=== PATIENT | male | born 1965 | race Caucasian/White ===

== ENCOUNTER → 2016-07-13 | Outpatient (CLI) | payer MEDICARE, MEDICAID ==
[~2016-07-13] MED LIST: CALC600T34 PO; FLON0.053; FOSA70TA OR; LEVE500 PO; PHEN60TA PO
--- NOTE | 2016-07-13 14:36 | RADRPT ---
EXAM DATE/TIME: 07/13/2016 13:56 [facility] COMPARISON: CT BRAIN W/O CONTRAST, May 04, 2012, 21:48. INDICATIONS : Hydrocephalus, evaluate shunt. Status post craniotomy. RADIATION DOSE: 56.35 CTDIvol (mGy) MEDICAL HISTORY : Hydrocephalus SURGICAL HISTORY : Shunt ENCOUNTER: Initial ACUITY: 1 day PAIN SCALE: 0/10 LOCATION: cranial TECHNIQUE: Multiple contiguous axial images were obtained of the head. Using automated exposure control and adj ustment of the mA and/or kV according to patient size, radiation dose was kept as low as reasonably a chievable to obtain optimal diagnostic quality images. FINDINGS: There are interval postsurgical changes status post right frontal craniotomy. There are 2 shunt cesia ters again visualized which are unchanged in appearance. One catheter has the tip in a large extra ax ial fluid collection along the left temporal and parietal lobe. Second catheter tip projected in the left occipital horn of the lateral ventricle. The ventricular system is stable in appearance with no acute hydrocephalus. There is an area of encephalomalacia now noted in the right frontal lobe at site of interval craniotomy. There is no acute hemorrhage or mass effect. The posterior fossa and brainst em are stable. CONCLUSION: 1. No acute hemorrhage or mass effect. 2. [address] cathe[address] remain in place and are unchanged in appearance. There is no acute hydrocephalus . 3. Interval postsurgical changes status post right frontal craniotomy with new area of encephalomalac ia at site of prior mass. Jasiel Sales MD on July 13, 2016 at 14:31 Board Certified Radiologist. This report was verified electronically.
== END ==
LOC: HRAD 13:21
PROVIDERS: ATTEND Psychiatry & Neurology Neurology
DX: G91.9 Hydrocephalus, unspecified (principal)
CPT/HCPCS: 70450

== ENCOUNTER → 2017-01-13 | Outpatient (CLI) | payer MEDICARE, MEDICAID ==
--- NOTE | 2017-01-13 14:43 | RADRPT ---
EXAM DATE/TIME: 01/13/2017 13:51 [facility] COMPARISON: CT BRAIN W/O CONTRAST, July 13, 2016, 13:56. INDICATIONS : Hydrocephalus RADIATION DOSE: 47.11 CTDIvol (mGy) MEDICAL HISTORY : Seizures. Chronic obstructive pulmonary disease. Arthritis. Hypothyroid SURGICAL HISTORY : Shunt ENCOUNTER: Initial ACUITY: 1 day PAIN SCALE: 0/10 LOCATION: cranial TECHNIQUE: Multiple contiguous axial images were obtained of the head. Using automated exposure control and adj ustment of the mA and/or kV according to patient size, radiation dose was kept as low as reasonably a chievable to obtain optimal diagnostic quality images. DICOM format image data is available electro nically for review and comparison. FINDINGS: The examination demonstrates a ventriculoperitoneal shunt which is present in a sizable extra-axial f luid collection involving the left temporal region. There is encephalomalacia of the left temporal lo be. The shunt is similar in position to previous examination. There is no midline shift or other find ings to indicate significant mass effect. The ventricles are normal in size and configuration. The exam also demonstrates an area of encephalomalacia involving the right frontal lobe. The remainde r of the brain parenchyma is intact. There is extensive postsurgical changes involving the skull anteriorly. CONCLUSION: The patient's shunt is unchanged in position. The ventricles are normal in size. Large area of encephalomalacia involving the left temporal and parietal cortex stable compared to nika or. Sizable air encephalomalacia in the right frontal lobe. Extensive postsurgical changes in the skull. Overall today's study is unchanged from previous. Jeff Gates MD on January 13, 2017 at 14:39 Board Certified Radiologist. This report was verified electronically.
== END ==
LOC: HRAD 13:07
PROVIDERS: ATTEND Family Medicine
DX: G91.9 Hydrocephalus, unspecified (principal)
CPT/HCPCS: 70450